=== PATIENT | male | born 1945 | race Caucasian/White ===

== ENCOUNTER → 2016-12-20 | Outpatient (CLI) | payer BC, MEDICARE ==
[~2016-12-20] MED LIST: ACET-2321 PO; AMLO10TA57 PO; ASPI-1115 PO; FENO160T2 PO; GABA-336 PO; GLIP-72 PO; LEVO25TA9 PO; METO50TA5 PO; POLY17PO6 PO; SITA100T12 PO; clindamycin PO
--- NOTE | 2016-12-21 10:43 | ECHOF ---
DATE OF STUDY 12/20/2016 INDICATIONS Shortness of breath. History of pulmonic stenosis surgery in 1962. TECHNICAL QUALITY Technically difficult 2D, M-mode, Doppler echocardiographic images were submitted for interpretation. FINDINGS 1. CARDIAC CHAMBERS: Mild left atrial enlargement is present, measuring 4.5 cm. Left ventricle cavity diameter is difficult to accurately measure due to poor endocardial edge definition , difficult ultrasound beam transmission. Cavity is probably mildly enlarged. [employer] measured 6.3 cm. RV size and contractility appear normal. Aortic root diameter is normal. 2. LEFT VENTRICLE: Mild concentric LVH. Valve function appears preserved. Ejection fraction is about 55%-60%. Diastolic dysfunction is suggested, grade 2/4. E/e' 20. E/A 2.0. 3. VALVES: Aortic valve leaflets are not well seen. Pulmonic valve leaflets are not well seen. Mitral valve exhibits posterior annular calcification of a moderately heavy degree. Valve opening is normal. Tricuspid valve structure and motion appear normal. Normal valve excursion. 4. DOPPLER: Mild mitral regurgitation. Moderate tricuspid regurgitation. Very mild mitral stenosis with maximum and mean pressure gradient of 8 and 2 mmHg. Peak flow velocity 1.4 msec. No aortic stenosis. Peak flow velocity at the pulmonic valve level is 1.3 msec. No pulmonic stenosis. Mild pulmonary insufficiency is present. 5. Pulmonary hypertension is present. Systolic pulmonary artery pressure is estimated at 43 mmHg. 6. Central venous pressure is elevated with mild partial inspiratory collapse of less than 15%. 7. No evidence of pericardial effusion, intracardiac masses or demonstrable shunts. IMPRESSION 1. Mild left atrial enlargement. 2. Mild LV enlargement. 3. Normal left ventricular systolic function. EF 60%. 4. Diastolic dysfunction grade 2/4. 5. Posterior mitral annular calcification with mild mitral regurgitation and very mild stenosis. 6. No evidence of pulmonic stenosis, at least mild insufficiency is present. 7. Moderate tricuspid regurgitation. 8. Mild pulmonary hypertension. 9. Elevated central venous pressure. 10. Mild concentric LVH. 11. Abnormal interventricular septal motion (dysmotility may be associated with prior thoracotomy or less likely pulmonary hypertension). MTDD
== END ==
LOC: IMA 06:19
PROVIDERS: ATTEND Family Medicine
DX: I08.1 Rheumatic disorders of both mitral and tricuspid valves (principal); I27.2 Other secondary pulmonary hypertension; I50.30 Unspecified diastolic (congestive) heart failure; R93.1 Abnormal findings on diagnostic imaging of heart and coronary circulation; R06.02 Shortness of breath
CPT/HCPCS: 93306